=== PATIENT | male | born 1990 | race Caucasian/White ===

== ENCOUNTER 2017-12-09 00:14 | Emergency (ER) | payer OTHER ==
[~2017-12-09] VITALS: Ht 188 cm; Wt 72.6 kg
[~2017-12-09 00:14] MED LIST: ALBU90OI INH; AMOX500; ASPI325B PO; Bactrim Ds Tab1 EACH PO; CRUTCH3 USE; DESO.05TCA TP; DOCU100 PO; FLUT110OIA IH; HYDACE5 PO; HYDCHLSU PO; IBUP800 PO; Keflex500 MG PO; NAPR500 PO; Norco 5-325 Ta1 EACH PO; OXYACE5T PO; PENVK500 PO; PRED20 PO; QUET100 PO; QUET25 PO; RXCODGUASY PO; RXHYDACE PO; RXTRAM50 PO; SULTRIDS PO; TRAM50 PO; TYLENOL COUGH & COLD; [UNRECOGNIZED DRUG - REMARK]
== END 2017-12-09 04:48 | disposition left against medical advice (07) ==
LOC: ER 00:14
DX: Z53.21 Procedure and treatment not carried out due to patient leaving prior to being seen by health care provider (principal)